=== PATIENT | female | born 1935 | race Caucasian/White ===

== ENCOUNTER 2023-06-28 18:24 | Inpatient (IN) ==
[2023-06-28] MEDS ORDERED: PANTOPRAZOLE 40 MG VIAL IV ONE (18:50)
[2023-06-28] MEDS: 0.9 % SODIUM CHLORIDE 250 ML IV SCH ×2 (18:53→22:17)
[2023-06-28 19:29] LABS: Basophils # (Auto) 0.05 K/mcL (0.00-0.30); Basophils % (Auto) 0.4 % (0.0-2.0); Eosinophils % (Auto) 0.9 % (0.0-7.0); Hematocrit 27.8 % (34.1-44.9); Hemoglobin 8.8 g/dL (11.2-15.7); Lymphocytes # (Auto) 1.26 K/mcL (1.50-4.80); Lymphocytes % (Auto) 11.1 % (15.5-49.0); Mean Cell Volume 91.7 fL (80.0-100.0); Mean Corpuscular HGB Conc 31.7 g/dL (31.0-36.0); Mean Platelet Volume 10.9 fL (8.8-12.5); Monocytes # (Auto) 0.93 K/mcL (0.10-0.90); Monocytes % (Auto) 8.2 % (1.0-12.0); Neutrophils % (Auto) 79.1 % (38.0-78.0); Platelet Count 235 K/mcL (140-440); RBC 3.03 M/mcL (3.59-5.38); Red Cell Distribution Width 17.3 % (11.5-14.5); WBC 11.4 K/mcL (4.5-11.0)
[2023-06-28 19:45] LABS: Blood Urea Nitrogen 33 mg/dL (8-23); Calcium 8.6 mg/dL (8.6-10.4); Carbon Dioxide 26 mmol/L (22-30); Chloride 99 mmol/L (96-108); Glomerular Filtration Rate 58; Glucose 102 mg/dL (70-105)
[2023-06-28] MEDS ORDERED: 0.9 % SODIUM CHLORIDE 250 ML IV SCH ×2 (19:45→20:30)
[2023-06-28] MEDS: PANTOPRAZOLE 80 MG in 0.9 % SODIUM CHLORIDE 100 ML IV SCH (19:51)
[2023-06-28] MEDS ORDERED: HYDROmorphone 0.5 MG/0.5 ML SYRINGE IV PRN (20:07)
[2023-06-28] MEDS ORDERED: ONDANSETRON 4 MG/2 ML VIAL IV PRN (20:07)
[2023-06-28] MEDS ORDERED: 0.9 % SODIUM CHLORIDE 1,000 ML IV SCH (20:15)
[2023-06-28] MEDS ORDERED: FUROSEMIDE 20 MG/2 ML VIAL IV ONE ×2 (20:23→23:50)
[2023-06-28] MEDS: 0.9 % SODIUM CHLORIDE 1,000 ML IV SCH (23:45)
[2023-06-29] MEDS ORDERED: PANTOPRAZOLE 40 MG VIAL IV ONE (04:18)
[2023-06-29] MEDS: PANTOPRAZOLE 80 MG in 0.9 % SODIUM CHLORIDE 100 ML IV SCH ×2 (04:26→14:44)
[2023-06-29 06:22] LABS: Basophils # (Auto) 0.06 K/mcL (0.00-0.30); Basophils % (Auto) 0.7 % (0.0-2.0); Eosinophils % (Auto) 1.1 % (0.0-7.0); Hematocrit 35.1 % (34.1-44.9); Hemoglobin 11.5 g/dL (11.2-15.7); Lymphocytes # (Auto) 1.27 K/mcL (1.50-4.80); Lymphocytes % (Auto) 14.1 % (15.5-49.0); Mean Cell Volume 90.9 fL (80.0-100.0); Mean Corpuscular HGB Conc 32.8 g/dL (31.0-36.0); Mean Platelet Volume 10.2 fL (8.8-12.5); Monocytes % (Auto) 8.9 % (1.0-12.0); Platelet Count 213 K/mcL (140-440); RBC 3.86 M/mcL (3.59-5.38); Red Cell Distribution Width 16.7 % (11.5-14.5)
[2023-06-29 06:32] LABS: ALT/SGPT < 5 U/L (<40); AST/SGOT 17 U/L (<32); Albumin/Globulin Ratio 1.3 (1.0-2.3); Alkaline Phosphatase 54 U/L (39-117); Bilirubin,Direct 0.3 mg/dL (<0.3); Blood Urea Nitrogen 23 mg/dL (8-23); Calcium 8.6 mg/dL (8.6-10.4); Carbon Dioxide 29 mmol/L (22-30); Chloride 100 mmol/L (96-108); Globulin 2.4 gm/dL (2.2-3.7); Glomerular Filtration Rate 67; Glucose 96 mg/dL (70-105); Lactate Dehydrogenase 208 U/L (135-225); Phosphorous 3.3 mg/dL (2.5-4.5); Triglycerides 67 mg/dL (<150); Uric Acid 5.7 mg/dL (2.5-8.0)
[2023-06-29] MEDS ORDERED: PROPOFOL 200 MG/20 ML VIAL IV ONE (08:52)
[2023-06-29] MEDS ORDERED: fentaNYL 100 MCG/2 ML VIAL ONE (08:52)
[2023-06-29] MEDS ORDERED: SUGAMMADEX SODIUM 200 MG/2 ML VIAL IV ONE (11:03)
[2023-06-29] MEDS ORDERED: ALBUTEROL SULFATE 60 PUFF INHALER INH PRN (11:14)
[2023-06-29] MEDS: 0.9 % SODIUM CHLORIDE 1,000 ML IV SCH (16:42)
[2023-06-29 18:49] LABS: Basophils # (Auto) 0.05 K/mcL (0.00-0.30); Basophils % (Auto) 0.5 % (0.0-2.0); Eosinophils # (Auto) 0.12 K/mcL (0.00-0.70); Eosinophils % (Auto) 1.2 % (0.0-7.0); Hematocrit 36.6 % (34.1-44.9); Hemoglobin 11.6 g/dL (11.2-15.7); Lymphocytes # (Auto) 1.05 K/mcL (1.50-4.80); Lymphocytes % (Auto) 10.9 % (15.5-49.0); Mean Cell Volume 92.4 fL (80.0-100.0); Mean Corpuscular HGB Conc 31.7 g/dL (31.0-36.0); Mean Platelet Volume 9.7 fL (8.8-12.5); Monocytes # (Auto) 0.85 K/mcL (0.10-0.90); Monocytes % (Auto) 8.8 % (1.0-12.0); Neutrophils % (Auto) 78.3 % (38.0-78.0); Platelet Count 230 K/mcL (140-440); RBC 3.96 M/mcL (3.59-5.38); Red Cell Distribution Width 17.2 % (11.5-14.5); WBC 9.7 K/mcL (4.5-11.0)
[2023-06-29] MEDS: BUDESONIDE GLYCOPYR FORMOTEROL INH SCH (20:41)
[2023-06-30] MEDS ORDERED: PANTOPRAZOLE 40 MG VIAL IV ONE (00:42)
[2023-06-30] MEDS: PANTOPRAZOLE 80 MG in 0.9 % SODIUM CHLORIDE 100 ML IV SCH ×3 (00:49→14:26)
[2023-06-30] MEDS: LEVOTHYROXINE 50 MCG TABLET PO SCH (07:05)
[2023-06-30 07:58] LABS: Basophils # (Auto) 0.06 K/mcL (0.00-0.30); Basophils % (Auto) 0.7 % (0.0-2.0); Eosinophils # (Auto) 0.16 K/mcL (0.00-0.70); Eosinophils % (Auto) 1.8 % (0.0-7.0); Hematocrit 37.4 % (34.1-44.9); Hemoglobin 11.8 g/dL (11.2-15.7); Lymphocytes # (Auto) 1.09 K/mcL (1.50-4.80); Mean Cell Volume 93.7 fL (80.0-100.0); Mean Corpuscular HGB Conc 31.6 g/dL (31.0-36.0); Mean Platelet Volume 9.9 fL (8.8-12.5); Monocytes # (Auto) 0.92 K/mcL (0.10-0.90); Monocytes % (Auto) 10.1 % (1.0-12.0); Neutrophils % (Auto) 75.3 % (38.0-78.0); Platelet Count 227 K/mcL (140-440); RBC 3.99 M/mcL (3.59-5.38); Red Cell Distribution Width 17.1 % (11.5-14.5); WBC 9.1 K/mcL (4.5-11.0)
[2023-06-30] MEDS: AMIODARONE HCL 200 MG TABLET PO SCH (08:12)
[2023-06-30] MEDS: LOSARTAN 50 MG TABLET PO SCH (08:12)
[2023-06-30] MEDS: BUDESONIDE GLYCOPYR FORMOTEROL INH SCH ×2 (08:14→20:50)
[2023-06-30] MEDS: 0.9 % SODIUM CHLORIDE 1,000 ML IV SCH ×2 (11:39→14:26)
[2023-07-01] MEDS: PANTOPRAZOLE 80 MG in 0.9 % SODIUM CHLORIDE 100 ML IV SCH ×4 (01:39→17:31)
[2023-07-01] MEDS: LEVOTHYROXINE 50 MCG TABLET PO SCH (07:40)
[2023-07-01] MEDS: AMIODARONE HCL 200 MG TABLET PO SCH (08:15)
[2023-07-01] MEDS: 0.9 % SODIUM CHLORIDE 1,000 ML IV SCH (08:15)
[2023-07-01] MEDS: LOSARTAN 50 MG TABLET PO SCH (08:15)
[2023-07-01] MEDS: BUDESONIDE GLYCOPYR FORMOTEROL INH SCH ×2 (08:16→21:02)
[2023-07-02] MEDS: PANTOPRAZOLE 80 MG in 0.9 % SODIUM CHLORIDE 100 ML IV SCH ×2 (04:34→07:22)
[2023-07-02] MEDS: 0.9 % SODIUM CHLORIDE 1,000 ML IV SCH (04:35)
[2023-07-02 06:04] LABS: Hemoglobin 11.2 g/dL (11.2-15.7); Mean Cell Volume 95.5 fL (80.0-100.0); Mean Corpuscular HGB Conc 31.1 g/dL (31.0-36.0); Mean Platelet Volume 9.7 fL (8.8-12.5); Platelet Count 193 K/mcL (140-440); RBC 3.77 M/mcL (3.59-5.38); Red Cell Distribution Width 16.9 % (11.5-14.5); WBC 14.1 K/mcL (4.5-11.0)
[2023-07-02 06:25] LABS: Blood Urea Nitrogen 8 mg/dL (8-23); Calcium 7.4 mg/dL (8.6-10.4); Carbon Dioxide 23 mmol/L (22-30); Chloride 105 mmol/L (96-108); Glomerular Filtration Rate 82; Glucose 95 mg/dL (70-105)
[2023-07-02] MEDS: LEVOTHYROXINE 50 MCG TABLET PO SCH (07:24)
[2023-07-02] MEDS: LOSARTAN 50 MG TABLET PO SCH (08:34)
[2023-07-02] MEDS: AMIODARONE HCL 200 MG TABLET PO SCH (08:34)
[2023-07-02] MEDS: BUDESONIDE GLYCOPYR FORMOTEROL INH SCH (08:38)
== END 2023-07-02 14:20 | disposition home or self-care (01) | DRG 378 ==
LOC: ED 18:24 → ICU 18:24 → OBSVTOIN 20:40 → MEDSUR 06-30 13:32
PROVIDERS: ADMIT Family Medicine Adult Medicine; ATTEND Family Medicine Adult Medicine